=== PATIENT | female | born 1985 | race American Indian/Alaskan Native ===

== ENCOUNTER 2017-08-20 07:33 | Emergency (ER) | payer OTHER ==
--- NOTE | 2017-08-20 07:36 | PDOC ---
History of Present Illness <David Peterson - Last Filed: 08/20/17 10:32> - General History Source: Patient, Significant Other Exam Limitations: Language Barrier (Neocleus #[id number] used for Laney interpretation) - History of Present Illness Travel History: Yes Initial Comments: 08/20/17 08:12 The patient is a 32 year old female, 12 weeks by date, , with no significant past medical history, presents to the emergency department with intermittent right flank and right upper abdominal pain starting several hours ago. She reports the pain as sharp and colicy in nature. She denies radiation of pain. She denies exacerbating or alleviating factors of pain. She denies chest pain, shortness of breath, headache and dizziness. She denies fever, chills, nausea, vomit, diarrhea and constipation. She denies dysuria, frequency, urgency and hematuria. Allergies: none Past surgical history: none Social history: denies ETOH and tobacco PCP: Dr. Lizeth Amaro loftsman: Dr. Andrews <Kimmie Krause - Last Filed: 08/20/17 10:41> - General Chief Complaint: Pain, Acute Stated Complaint: ABD PAIN Time Seen by Provider: 08/20/17 07:36 Past History <David Peterson - Last Filed: 08/20/17 10:32> <Kimmie Krause - Last Filed: 08/20/17 10:41> - Past Medical History Allergies/Adverse Reactions: Allergies Allergy/AdvReac Type Severity Reaction Status Date / Time No Known Allergies Allergy Verified 08/20/17 07:36 Home Medications: Ambulatory Orders NK [No Known Home Medication] 08/20/17 Review of Systems - Review of Systems Able to Perform ROS?: Yes Comments:: 08/20/17 08:14 CONSTITUTIONAL: No fever, no chills, no fatigue EYES: No visual changes ENT: No ear pain, no sore throat CARDIOVASCULAR: No chest pain, no palpitations RESPIRATORY: No cough, no SOB GI: (+) right upper quadrant pain. no nausea, no vomiting, no constipation, no diarrhea GENITOURINARY: (+) right flank pain. No dysuria, no frequency, no hematuria MUSKULOSKELETAL: No backpain, no joint pain, no myalgias SKIN: No rash NEURO: No headache <Jimi,Kimmie - Last Filed: 08/20/17 10:41> *Physical Exam - Vital Signs Last Vital Signs Temp Pulse Resp BP Pulse Ox 98.3 F 88 20 111/77 98 08/20/17 07:35 08/20/17 07:35 08/20/17 07:35 08/20/17 07:35 08/20/17 07:47 - Physical Exam Comments: 08/20/17 08:14 CONSTITUTIONAL: Well-appearing; well-nourished; in no apparent distress HEAD: Normocephalic; atraumatic EYES: PERRL; EOM intact.no scleral icterus. ENMT: (+) Dry mucosa. External appears normal; normal oropharynx NECK: Supple; non-tender; no cervical lymphadenopathy CARD: Normal S1, S2; no murmurs, rubs, or gallops RESP: Normal chest excursion with respiration; breath sounds clear and equal bilaterally; no wheezes, rhonchi, or rales ABD: (+) right CVA tenderness. RUQ tenderness to palpation. Soft, non- distended. non-tender; no palpable organomegaly, no palpable hernias EXT: Normal ROM in all four extremities; non-tender to palpation; distal pulses intact SKIN: Warm, dry, no rash NEURO: No focal neurological deficiencies. <YasminVilma wylieanda - Last Filed: 08/20/17 10:41> ED Treatment Course - LABORATORY CBC & Chemistry Diagram: 08/20/17 08:00 08/20/17 08:00 <David Peterson - Last Filed: 08/20/17 10:32> - LABORATORY CBC & Chemistry Diagram: 08/20/17 08:00 08/20/17 08:00 - RADIOLOGY Radiograph Interpretation: EXAM#: TYPE/EXAM: RESULT: [id number] US/ABDOMEN US -LIMITED Complete abdominal ultrasound. HISTORY: 32-year-old female with right upper quadrant abdominal pain TECHNIQUE: Real-time complete abdominal ultrasound with color-flow Doppler was performed by the electroencephalograph technologist. No comparison study is available. FINDINGS: The liver is normal in size measuring 16.6 cm in length. The hepatic parenchyma is homogeneous in echotexture with no evidence of focal lesion. No gallstones or gallbladder sludge seen. No gallbladder wall thickening or pericholecystic fluid is seen. No sonographic Carson's sign was elicited. The CBD is normal in caliber measuring 5 mm in diameter. The visualized portion of the pancreas appear grossly unremarkable. The spleen is normal in size measuring 10.2 x 3.7 x 3.7 cm. No focal splenic lesion seen. The right kidney measures 11.7 x 4.3 x 6.1 cm. The left kidney measures 12.5 x 5.4 x 6.3 cm. The right and left renal parenchymal echogenicity is within normal limits. There is no right or left renal masses, stones, cysts or hydronephrosis. The visualized portions of the abdominal aorta and IVC appear unremarkable. The main portal vein is patent. IMPRESSION: Unremarkable complete abdominal ultrasound Reported By: Artur Newton MD 08/20/17 1003 ___ EXAM#: TYPE/EXAM: RESULT: [id number] US/ <14WKS US Abdominal pain. Evaluate Pelvis/obstetrical ultrasound, transvesical The uterus is gravid measuring 14.7 x 6.6 cm. An intrauterine fetus is present with average sonographic gestational age of 14 weeks 3 days. heart activity was documented with a heart rate of 155 bpm. Fluid is present in the stomach. There is no gross evidence of hydrocephalus. Amount of amniotic fluid is within normal limits. The placenta is posterior and appears unremarkable. Limited visualization of the uterine cervix measuring 3.3 cm in sagittal length without gross dilatation or funneling. IMPRESSION: Single live intrauterine with estimated average sonographic gestational age of 14 weeks 3 days. The heart activity was documented. Limited visualization of the uterine cervix that appears to be within normal limits in size without dilatation or funneling. Correlate clinically for follow-up. Reported By: Iris Yang MD 08/20/17 1004 - Medications Given in the ED: ED Medications Discontinued Medications Generic Name Dose Route Start Last Admin Trade Name Freq PRN Reason Stop Dose Admin Acetaminophen 1,000 mg 08/20/17 07:47 08/20/17 08:08 Ofirmev Injection - IVPB 08/20/17 07:48 1,000 mg ONCE ONE Administration <Kimmie Krause - Last Filed: 08/20/17 10:41> Medical Decision Making - Medical Decision Making 08/20/17 08:39 Patient is a 32-year-old female, 2 para 1, at 12 weeks gestation by LMP presents to the ER with atraumatic left upper quadrant and left flank pain. Differential diagnoses includes nephrolithiasis versus cholelithiasis versus cholecystitis versus pyelonephritis versus acute appendicitis. Will hydrate. We' ll administer acetaminophen for pain. We'll obtain CBC/CMP/lipase/UA. Will obtain right upper quadrant and -related ultrasound. Will reassess. 08/20/17 10:32 pt is assymtomatic, patricio po. abd exam shows no abd ttp, no g/r. no cva ttp. cbc/cmp/ua-wnl. Abd and related US are wnl, with fh+. findings and plan of care transmitted topt using [employer] general intern. pt expressed understanding. will d/c with industrial relations counselor f/u. <David Peterson - Last Filed: 08/20/17 10:32> *DC/Admit/Observation/Transfer - Attestations Physician Attestion: 08/20/17 08:39 The documentation was prepared by the scribe under my direct supervision. I have reviewed the documentation which correctly represents the findings, medical decision-making and critical action taken by me. <David Peterson - Last Filed: 08/20/17 10:32> - Attestations Scribe Attestion: 08/20/17 08:15 Documentation prepared by Kimmie Krause, acting as medical biller coder for David Peterson MD <Kimmie Krause - Last Filed: 08/20/17 10:41> Diagnosis at time of Disposition: Abdominal pain affecting - Discharge Dispostion Disposition: HOME Condition at time of disposition: Stable - Referrals Referrals: Nicole Mack MD [Staff Physician] - - Patient Instructions Printed Discharge Instructions: DI for Abdominal Pain-Adult Additional Instructions: Take Zantac-150 mg twice daily for the next 5 days. Return immediately for worsening symptoms.
[2017-08-20 07:39] VITALS: BMI 29.6
[2017-08-20] MEDS ORDERED: SODIUM CHLORIDE 1,000 ML IV STA (07:47)
[2017-08-20] MEDS ORDERED: ACETAMINOPHEN 1000 MG/100 ML VIAL (NON FORMULARY) IVPB ONE (07:47)
[2017-08-20] MEDS ORDERED: ACETAMINOPHEN INJECTION 100 ML IVPB ONE (08:02)
[2017-08-20 08:14] LABS: BASO % 0.5 % (0-2.0); EOS % 1.4 % (0-4.5); HEMATOCRIT 32.8 % (32.4-45.2); HEMOGLOBIN 11.1 GM/dL (10.7-15.3); LYMPH % 25.7 % (8-40); MCH 28.2 pg (25.7-33.7); MCHC 33.7 g/dl (32.0-36.0); MEAN CELL VOLUME 83.6 fl (80-96); MEAN PLT VOLUME 9.1 fl (7.5-11.1); MONO % 7.6 % (3.8-10.2); NEUT % 64.8 % (42.8-82.8); PLATELET COUNT 180 K/MM3 (134-434); RBC 3.92 M/mm3 (3.60-5.2); WHITE BLOOD COUNT 8.5 K/mm3 (4.0-10.0)
[2017-08-20 08:15] LABS: URINE APPEARANCE CLEAR; URINE BILIRUBIN NEGATIVE (<2.0 mg/dL); URINE BLOOD NEGATIVE (NEGATIVE); URINE COLOR STRAW; URINE GLUCOSE (UA) NEGATIVE (NEGATIVE); URINE KETONE NEGATIVE (NEGATIVE); URINE NITRITE NEGATIVE (NEGATIVE); URINE PROTEIN NEGATIVE (NEGATIVE); URINE UROBILINOGEN NEGATIVE mg/dL (0.2-1.0)
[2017-08-20 08:25] LABS: URINE LEUK ESTERASE 1+ (NEGATIVE)
[2017-08-20 08:27] LABS: EPI CELLS RARE /HPF (FEW); URINE BACTERIA FEW /hpf (NONE SEEN); URINE MUCUS RARE
[2017-08-20 08:40] LABS: ALBUMIN 3.3 g/dl (3.4-5.0); ALK PHOS 63 U/L (45-117); ANION GAP 9 (8-16); BILIRUBIN,TOTAL 0.2 mg/dL (0.2-1.0); BLOOD UREA NITROGEN 4 mg/dL (7-18); CALCIUM 8.6 mg/dL (8.5-10.1); CHLORIDE 108 mmol/L (98-107); CO2 22 mmol/L (21-32); CREATININE 0.5 mg/dL (0.55-1.02); GLUCOSE,RANDOM 76 mg/dL (74-106); LIPASE 116 U/L (73-393); POTASSIUM 3.7 mmol/L (3.5-5.1); SGOT/AST 11 U/L (15-37); SGPT/ALT 10 U/L (12-78); SODIUM 139 mmol/L (136-145); TOT PROT 7.2 g/dl (6.4-8.2)
[2017-08-20 10:51] VITALS: BP 115/71; PULSE 81; TEMP 98.1
== END 2017-08-20 10:52 | disposition home or self-care (01) ==
LOC: JER 07:33
PROC: 3E033NZ Introduction of Analgesics, Hypnotics, Sedatives into Peripheral Vein, Percutaneous Approach (ICD-10-PCS; principal; 2017-08-20)
PROC: 3E0337Z Introduction of Electrolytic and Water Balance Substance into Peripheral Vein, Percutaneous Approach (ICD-10-PCS; 2017-08-20)
DX: O26.891 Other specified pregnancy related conditions, first trimester (principal); Z3A.12 12 weeks gestation of pregnancy; R10.31 Right lower quadrant pain
CPT/HCPCS: 36415; 76705-TC; 76801-TC; 80053; 81003; 81015; 83690; 85025; 87086; 96361; 96374; 99284-25; J0131; J7030

== ENCOUNTER 2018-02-23 10:00 | Inpatient (IN) | payer OTHER ==
[2018-02-23] MEDS ORDERED: TUBERCULIN PPD 5 TU/0.1ML SYRINGE (IN PATIENT USE ONLY) ID ONE (12:00)
[2018-02-23 12:34] LABS: BASO % 0.2 % (0-2.0); EOS % 0.9 % (0-4.5); HEMATOCRIT 33.1 % (32.4-45.2); HEMOGLOBIN 10.5 GM/dL (10.7-15.3); LYMPH % 20.2 % (8-40); MCH 23.1 pg (25.7-33.7); MCHC 31.8 g/dl (32.0-36.0); MEAN CELL VOLUME 72.5 fl (80-96); MEAN PLT VOLUME 8.6 fl (7.5-11.1); MONO % 8.6 % (3.8-10.2); NEUT % 70.1 % (42.8-82.8); PLATELET COUNT 182 K/MM3 (134-434); RBC 4.57 M/mm3 (3.60-5.2); RDW 21.9 % (11.6-15.6); WHITE BLOOD COUNT 11.2 K/mm3 (4.0-10.0)
[2018-02-23 12:48] LABS: INR 1.01 (0.83-1.09); PROTHROMBIN TIME (PATIENT) 11.9 SEC (9.7-13.0)
[2018-02-23 12:50] LABS: ACTIVATED PTT 27.3 SECONDS (25.2-36.5)
[2018-02-23 12:58] LABS: ANION GAP 8 MMOL/L (8-16); BLOOD UREA NITROGEN 7 mg/dL (7-18); CALCIUM 8.7 mg/dL (8.5-10.1); CHLORIDE 106 mmol/L (98-107); CO2 24 mmol/L (21-32); CREATININE 0.3 mg/dL (0.55-1.3); GLUCOSE,RANDOM 83 mg/dL (74-106); POTASSIUM 4.1 mmol/L (3.5-5.1); SODIUM 139 mmol/L (136-145)
[2018-02-23 13:48] LABS: ANISOCYTOSIS 2+; MACROCYTOSIS 0; PLATELET ESTIMATE NORMAL
[2018-02-23 14:28] VITALS: BMI 33.4
[2018-02-23] MEDS ORDERED: DINOPROSTONE 10 MG VAGINAL SUPPOSITORY VG ONE (15:10)
[2018-02-23] MEDS ORDERED: DEXTROSE 5%-LACTATED RINGERS 1,000 ML IV SCH (15:15)
--- NOTE | 2018-02-23 15:18 | HP ---
Past Medical History - Admission Chief Complaint: Abdominal pain History of Present Illness: 32 yo @ 40 weeks gestation, EDC 02/23/18, presents to L&D c/o abdominal pain. Decision made for induction of labor with Cervidil. History Source: Patient Limitations to Obtaining History: No Limitations - Past Medical History ...: 2 ...Para: 1 ...Term: 1 ...: 0 ...Spon : 0 ...Induced : 0 ...Multiple Gestation: 0 ...LMP: 05/13/17 ... Weeks Gestation by Dates: 40.6 ...EDC by Dates: 02/17/18 ...EDC by Sono: 02/23/18 - Past Surgical History Past Surgical History: Yes: None Hx Myomectomy: No Hx Transabdominal Cerclage: No - Smoking History Smoking history: Never smoked Have you smoked in the past 12 months: No - Alcohol/Substance Use Hx Alcohol Use: No History of Substance Use: reports: None - Social History Usual Living Arrangement: Yes: With Spouse History of Recent Travel: No Home Medications - Allergies Allergies/Adverse Reactions: Allergies Allergy/AdvReac Type Severity Reaction Status Date / Time No Known Allergies Allergy Verified 01/08/18 15:50 - Home Medications Home Medications: Ambulatory Orders Ferrous Sulfate [Feosol] 325 mg PO DAILY 01/08/18 Levothyroxine [Synthroid -] 112 mcg PO DAILY 01/08/18 Vits96/Iron Fum/Folic [ Tablet] 1 each PO DAILY 01/08/18 Family Disease History - Family Disease History Family History: Unremarkable Review of Systems - Review of Systems Constitutional: reports: No Symptoms Eyes: reports: No Symptoms HENT: reports: No Symptoms Neck: reports: No Symptoms Cardiovascular: reports: No Symptoms Respiratory: reports: No Symptoms Gastrointestinal: reports: No Symptoms Genitourinary: reports: Pain Breasts: reports: No Symptoms Reported Musculoskeletal: reports: No Symptoms Integumentary: reports: No Symptoms Neurological: reports: No Symptoms Endocrine: reports: No Symptoms Hematology/Lymphatic: reports: No Symptoms Psychiatric: reports: No Symptoms Pain Intensity: 4 Physical Exam - Maternity Vital Signs: Vital Signs Temperature 98.4 F 02/23/18 14:00 Pulse Rate 92 H 02/23/18 15:00 Respiratory Rate 20 02/23/18 15:00 Blood Pressure 99/56 L 02/23/18 15:00 O2 Sat by Pulse Oximetry (%) Constitutional: Yes: Well Nourished Eyes: Yes: Conjunctiva Clear HENT: Yes: Atraumatic Neck: Yes: Supple Cardiovascular: Yes: Regular Rate and Rhythm Lungs: Clear to auscultation Breast(s): Yes: WNL - Abdominal Exam/OB Number of Fetuses: Single Presentation: Vertex Contractions: No Intensity: Mild - Vaginal Exam/OB Vaginal Bleediing: No Station: -3 - Physical Exam Musculoskeletal: Yes: WNL Extremities: Yes: WNL ...Motor Strength: WNL Psychiatric: Yes: Alert, Oriented - Labs Lab Results: CBC, BMP 02/23/18 12:25 02/23/18 12:25 Problem List - Problems (1) 40 weeks gestation of Code(s): Z3A.40 - 40 WEEKS GESTATION OF Assessment/Plan 40 weeks gestation Cervidil induction Re-evaluate in 12 hours or before if indicated Analgesia as needed
[2018-02-23] MEDS ORDERED: AMPICILLIN - 2 GM in SODIUM CHLORIDE 100 ML IVPB ONE (23:30)
[2018-02-23] MEDS ORDERED: PROMETHAZINE HCL 25 MG/1 ML VIAL IVPB ONE (23:30)
[2018-02-23] MEDS ORDERED: BUTORPHANOL TARTRATE 1 MG/ML VIAL IVPB ONE (23:30)
[2018-02-23] MEDS ORDERED: AMPICILLIN SODIUM 2 GM VIAL ONE (23:46)
[2018-02-23] MEDS ORDERED: BUTORPHANOL TARTRATE 1 MG/ML VIAL ONE ×2 (23:58)
[2018-02-23] MEDS ORDERED: PROMETHAZINE HCL 25 MG/1 ML VIAL ONE (23:59)
[2018-02-24] MEDS: ELECTROLYTE-148 SOLN 1,000 ML IV SCH ×2 (03:35→04:57)
[2018-02-24] MEDS ORDERED: FENTANYL/BUPIVACAINE/NS/PF - PCEA - 50 ML DISP.SYRIN EP ONE ×3 (03:38→09:58)
[2018-02-24] MEDS ORDERED: BUPIVACAINE HCL/PF 0.25% (2.5MG/ML) 10 ML VIAL ONE (03:41)
[2018-02-24] MEDS: AMPICILLIN - 1 GM in SODIUM CHLORIDE 100 ML IVPB SCH ×2 (04:00→08:35)
[2018-02-24] MEDS ORDERED: FENTANYL/BUPIVACAINE/NS/PF - PCEA - 50 ML DISP.SYRIN EP SCH (04:00)
[2018-02-24] MEDS ORDERED: NALOXONE HCL 0.4 MG/ML VIAL IVPUSH PRN (04:02)
[2018-02-24] MEDS ORDERED: AMPICILLIN SODIUM 1 GM VIAL ONE ×2 (04:11→08:35)
[2018-02-24] MEDS ORDERED: OXYTOCIN 30 UNITS in 0.9% NS 30 UNIT/500 ML INFUS.BAG IVPB ONE (09:19)
[2018-02-24] MEDS ORDERED: OXYTOCIN 30 UNITS in 0.9% NS 30 UNIT/500 ML INFUS.BAG IVPB SCH (09:25)
[2018-02-24] MEDS ORDERED: OXYTOCIN 20 UNITS in 0.9% NS 20 UNIT/1,000 ML INFUS.BAG IV ONE ×2 (10:24→11:34)
[2018-02-24] MEDS: OXYTOCIN 20 UNITS in 0.9% NS 20 UNIT/1,000 ML INFUS.BAG IV SCH ×2 (10:35→12:25)
[2018-02-24] MEDS ORDERED: METHYLERGONOVINE MALEATE 0.2 MG/1 ML AMP IM PRN (10:58)
[2018-02-24] MEDS ORDERED: BENZOCAINE 20% 57 GM BOTTLE TP PRN (10:58)
[2018-02-24] MEDS ORDERED: BENZOCAINE 28 GM HEMORRHOIDAL OINTMENT TP PRN (10:58)
[2018-02-24] MEDS ORDERED: BISACODYL 10 MG SUPP.RECT RC PRN (10:58)
[2018-02-24] MEDS ORDERED: WITCH HAZEL 50% (TUCKS) 40 PAD/JAR PAD TP PRN (10:58)
--- NOTE | 2018-02-24 11:03 | PN ---
Delivery - Delivery Vaginal Delivery: Spontaneous Episiotomy/Laceration: None EBL (cc): 300 Delivery, Single - Feeding Plan Initial Plan: Elected not to breastfeed exclusively throughout hospitalization Remarks - Remarks Remarks: Normal spontaneous vaginal delivery of a live infant. Nose / Oropharynx suctioned @ perineum. Cord around the body clamped and cut. Placenta expelled spontaneously intact. Baby handed to nurse. Mother in stable condition.
[2018-02-24 11:12] LABS: ARTERIAL BLD GAS O2 SATURATION 37.5 % (90-98.9); ARTERIAL BLOOD GAS PCO2 57.1 mmHg (35-45); ARTERIAL BLOOD GAS PO2 24.2 mmHg (80-100); ARTERIAL BLOOD GAS pH 7.17 (7.35-7.45)
[2018-02-24 11:21] LABS: VENOUS PC02 50.6 mmHg (38-52); VENOUS PH 7.23 (7.32-7.42); VENOUS PO2 26.7 mmHg (28-48)
[2018-02-24] MEDS: IBUPROFEN 600 MG TABLET (FP) PO PRN ×3 (12:48→21:22)
[2018-02-24] MEDS: ACETAMINOPHEN 325 MG TABLET (FP) PO PRN ×3 (12:49→21:21)
[2018-02-24] MEDS: FERROUS SO4 325 MG TABLET (FP) PO SCH (21:21)
[2018-02-25] MEDS: IBUPROFEN 600 MG TABLET (FP) PO PRN ×3 (04:19→20:18)
[2018-02-25] MEDS: ACETAMINOPHEN 325 MG TABLET (FP) PO PRN ×3 (04:20→20:18)
[2018-02-25 07:44] LABS: BASO % 0.2 % (0-2.0); EOS % 1.4 % (0-4.5); HEMOGLOBIN 8.8 GM/dL (10.7-15.3); LYMPH % 25.5 % (8-40); MCH 23.1 pg (25.7-33.7); MCHC 31.4 g/dl (32.0-36.0); MEAN CELL VOLUME 73.5 fl (80-96); MEAN PLT VOLUME 9.2 fl (7.5-11.1); MONO % 9.2 % (3.8-10.2); NEUT % 63.7 % (42.8-82.8); PLATELET COUNT 143 K/MM3 (134-434); RDW 21.8 % (11.6-15.6); WHITE BLOOD COUNT 11.3 K/mm3 (4.0-10.0)
[2018-02-25] MEDS: FERROUS SO4 325 MG TABLET (FP) PO SCH ×3 (10:00→22:43)
[2018-02-25] MEDS: PRENATAL VITAMINS W/ FOLIC ACID TABLET (FP) PO SCH (10:00)
[2018-02-25] MEDS ORDERED: DIPHTH,PERTUSS(ACELL),TET 0.5 ML DISP.SYRIN IM ONE (10:00)
[2018-02-25] MEDS ORDERED: SENNOSIDES/DOCUSATE COMBO (SENNA PLUS) TABLET (UD) PO PRN (22:00)
[2018-02-26] MEDS: ACETAMINOPHEN 325 MG TABLET (FP) PO PRN (05:01)
[2018-02-26] MEDS: IBUPROFEN 600 MG TABLET (FP) PO PRN (05:09)
[2018-02-26 08:20] VITALS: BP 105/67; PULSE 81; TEMP 98.3
[2018-02-26] MEDS: PRENATAL VITAMINS W/ FOLIC ACID TABLET (FP) PO SCH (09:22)
[2018-02-26] MEDS: FERROUS SO4 325 MG TABLET (FP) PO SCH (09:22)
--- NOTE | 2018-02-26 09:29 | PN ---
Post Note - Post Date of Delivery: 02/24/18 Vital Signs: Vital Signs - 24 hr 02/25/18 02/25/18 02/26/18 09:36 21:00 08:18 Temperature 97.8 F 97.9 F 98.3 F Pulse Rate 73 84 81 Respiratory 18 18 18 Rate Blood Pressure 103/56 L 110/72 105/67 - Subjective Subjective: No Complaints - Objective Afebrile: No Breast: Not engorged Abdomen: Soft, Non-tender Uterus: Fundus firm Vagina: Scant lochia Extremities: Non-tender - Assessment/Plan (1) Normal vaginal delivery Assessment: S/P Normal Plan: Routine Care (MD home)
== END 2018-02-26 12:20 | disposition home or self-care (01) | DRG 560 ==
LOC: JDEL 10:00 → JLDR 10:45 → J3W 02-24 12:31
PROVIDERS: ADMIT Obstetrics & Gynecology; ATTEND Obstetrics & Gynecology
PROC: 10E0XZZ Delivery of Products of Conception, External Approach (ICD-10-PCS; principal; 2018-02-24)
PROC: 3E0P7VZ Introduction of Hormone into Female Reproductive, Via Natural or Artificial Opening (ICD-10-PCS; 2018-02-24)
DX: O48.0 Post-term pregnancy (principal); Z3A.40 40 weeks gestation of pregnancy; Z37.0 Single live birth
CPT/HCPCS: 36415; 36600; 59025; 59409; 80048; 82803; 85025; 85610; 85730; 86593; 86850; 86900; 86901; 90686; 90715; G0008

== ENCOUNTER 2019-03-17 04:37 | Day surgery (SDC) | payer OTHER ==
[2019-03-16 12:59] VITALS: BMI 30.3
[2019-03-17] MEDS ORDERED: KETOROLAC TROMETHAMINE 30 MG/1 ML VIAL ONE (07:09)
[2019-03-17] MEDS ORDERED: PROPOFOL 20 ML ONE (07:09)
[2019-03-17] MEDS ORDERED: DEXAMETHASONE SOD PHOSPHATE 4 MG/1 ML VIAL ONE (07:09)
[2019-03-17] MEDS ORDERED: SUCCINYLCHOLINE CHLORIDE 200 MG/10 ML SYRINGE ONE (07:10)
[2019-03-17] MEDS ORDERED: MIDAZOLAM HCL 2 MG/2 ML SINGLE DOSE VIAL ONE (07:10)
[2019-03-17] MEDS ORDERED: ePHEDrine SULFATE 50 MG/1 ML AMPULE ONE (07:11)
[2019-03-17] MEDS ORDERED: oxyCODONE HCL 5 MG TABLET PO PRN (07:30)
[2019-03-17] MEDS ORDERED: ONDANSETRON 4 MG/2 ML VIAL IVPUSH PRN (07:30)
[2019-03-17] MEDS ORDERED: LACTATED RINGERS SOLUTION 1,000 ML IV SCH (07:30)
--- NOTE | 2019-03-17 07:47 | HP ---
Admitting History and Physical - Admission Chief Complaint: Chemical History of Present Illness: 33 yo with missed is pre op for suction D&C. History Source: Patient Limitations to Obtaining History: No Limitations - Past Medical History ...LMP: 01/03/19 ...: Yes (missed ) ...: 4 ...Para: 2 - Past Surgical History Past Surgical History: Yes: None - Smoking History Smoking history: Never smoked Have you smoked in the past 12 months: No - Alcohol/Substance Use Hx Alcohol Use: No History of Substance Use: reports: None - Social History Usual Living Arrangement: Yes: With Spouse History of Recent Travel: No Home Medications - Allergies Allergies/Adverse Reactions: Allergies Allergy/AdvReac Type Severity Reaction Status Date / Time No Known Allergies Allergy Verified 03/16/19 13:04 - Home Medications Home Medications: Ambulatory Orders Levothyroxine [Synthroid -] 100 mcg PO DAILY 03/16/19 Review of Systems - Review of Systems Constitutional: reports: No Symptoms Eyes: reports: No Symptoms HENT: reports: No Symptoms Neck: reports: No Symptoms Cardiovascular: reports: No Symptoms Respiratory: reports: No Symptoms Gastrointestinal: reports: No Symptoms Genitourinary: denies: Vaginal Bleeding Breasts: reports: No Symptoms Reported Musculoskeletal: reports: No Symptoms Integumentary: reports: No Symptoms Neurological: reports: No Symptoms Endocrine: reports: No Symptoms Hematology/Lymphatic: reports: No Symptoms Psychiatric: reports: No Symptoms Pain Intensity: 0 Physical Examination Vital Signs: Vital Signs Temperature 97.9 F 03/17/19 06:55 Pulse Rate 65 03/17/19 06:55 Respiratory Rate 20 03/17/19 06:55 Blood Pressure 100/69 03/17/19 06:55 O2 Sat by Pulse Oximetry (%) 100 03/17/19 06:55 Constitutional: Yes: Well Nourished Eyes: Yes: Conjunctiva Clear HENT: Yes: Atraumatic Neck: Yes: Supple Cardiovascular: Yes: Regular Rate and Rhythm Respiratory: Yes: Regular Gastrointestinal: Yes: Normal Bowel Sounds ...Rectal Exam: Yes: WNL Renal/: Yes: WNL Breast(s): Yes: WNL Musculoskeletal: Yes: WNL Extremities: Yes: WNL Neurological: Yes: Alert, Oriented ...Motor Strength: WNL Psychiatric: Yes: Alert, Oriented Problem List - Problems (1) Missed Problems reviewed: Yes Code(s): O02.1 - MISSED Assessment/Plan Missed Pre op for suction D&C Consent signed Anesthesia to see patient
--- NOTE | 2019-03-17 08:58 | OP ---
Operative Note - Note: Operative Date: 03/17/19 Pre-Operative Diagnosis: Missed Operation: Suction D&C Findings: Blood / Product of conception Post-Operative Diagnosis: Same as Pre-op Surgeon: Nicole Mack Anesthesia: General Specimens Removed: Product of conception Estimated Blood Loss (mls): 5
[2019-03-17 11:12] VITALS: PULSE 78
[2019-03-17 14:27] VITALS: BP 92/58; TEMP 97.8
--- NOTE | 2019-03-18 07:31 | OP ---
DATE OF OPERATION: 03/17/2019 PREOPERATIVE DIAGNOSIS: Missed . POSTOPERATIVE DIAGNOSIS: Missed . PROCEDURE PERFORMED: Suction dilatation and curettage. SURGEON: Nicole Mack M.D. ANESTHESIA: General. COMPLICATIONS: None. ESTIMATED BLOOD LOSS: 5 mL. DESCRIPTION OF PROCEDURE: The patient was taken to the operating room, where general anesthesia was administered. The patient was then placed in the lithotomy position. She was then prepped and draped in the proper sterile fashion. A weighted speculum was placed in the vagina. The anterior lip of the cervix was grasped with a single-tooth tenaculum. The cervical os was then sequentially dilated with Newberry dilators. A 10-mm suction curette was then gently introduced into the uterine cavity. The suction curette was then rotated to clear the uterus of all products of conception. Sharp curettage was then performed. The suction curette was reintroduced to clear the uterus of all remaining products of conception. Then the instruments were removed. The patient was taken out of the lithotomy position. She was taken to the PACU in stable condition. PATHOLOGY: Products of conception. Meir GUILLEN/[id number]
--- NOTE | 2019-03-22 16:14 | PATH ---
Surgical Pathology Report Patient Name: GAUDENCIO PUGA Med. Rec. #: [id number] /Age/Gender: 1985 (Age: 33) / F Account: [id number] Location: [facility] SURGICAL Taken: 03/17/2019 Received: 03/17/2019 Reported: 03/22/2019 Physicians: Nicole Mack M.D. Specimen(s) Received A: PRODUCTS OF CONCEPTION (#1) B: PRODUCTS OF CONCEPTION (#2) Clinical History Missed Final Diagnosis A. PRODUCTS OF CONCEPTION (#1), SUCTION D&C: CHORIONIC VILLI, DECIDUA, AND HYPERSECRETORY ENDOMETRIUM, CONSISTENT WITH PRODUCTS OF CONCEPTION. B. PRODUCTS OF CONCEPTION (#2), SUCTION D&C: HYPERSECRETORY ENDOMETRIUM. Electronically Signed Ekaterina Reynolds M.D. Gross Description A. Received in formalin labeled "#1 products of conception," is a 5.5 x 4.5 x 1.0 cm aggregate of rhodes soft tissue fragments. No definite villous tissue or somatic tissue is identified. Voicer sections are submitted in 3 cassettes. B. Received in formalin labeled "#2 products of conception," is a 1.0 x 0.6 x 0.1 cm aggregate of rhodes soft tissue fragments. No definitive villous tissue or somatic tissue is identified. The formalin is filtered and the specimen is entirely submitted in one cassette. 03/18/2019 [facility]03/18/2019
== END 2019-03-17 12:30 | disposition home or self-care (01) ==
LOC: JASU-SURG 04:37
PROVIDERS: ATTEND Obstetrics & Gynecology
PROC: 10D17ZZ Extraction of Products of Conception, Retained, Via Natural or Artificial Opening (ICD-10-PCS; principal; 2019-03-17 08:06)
DX: O02.1 Missed abortion (principal)
CPT/HCPCS: 88305-TC; 94760

== ENCOUNTER 2021-01-05 23:03 | Emergency (ER) | payer OTHER ==
[2021-01-05 23:08] VITALS: BP 117/78; PULSE 77; TEMP 97; BMI 33.6
[2021-01-06] MEDS ORDERED: ACETAMINOPHEN 1000 MG/100 ML VIAL (NON FORMULARY) IVPB ONE (00:25)
[2021-01-06] MEDS ORDERED: SODIUM CHLORIDE 0.9% 500 ML INFUS.BAG IV ONE (00:28)
[2021-01-06 01:10] LABS: BASO % 0.2 % (0-2.0); EOS % 0.9 % (0-4.5); HEMOGLOBIN 11.3 GM/dL (10.7-15.3); LYMPH % 22.2 % (8-40); MCHC 34.2 g/dl (32.0-36.0); MEAN CELL VOLUME 78.9 fl (80-96); MEAN PLT VOLUME 9.4 fl (7.5-11.1); NEUT % 68.7 % (42.8-82.8); PLATELET COUNT 188 10^3/uL (134-434); RBC 4.17 M/mm3 (3.60-5.2); RDW 15.6 % (11.6-15.6); WHITE BLOOD COUNT 9.9 K/mm3 (4.0-10.0)
[2021-01-06 01:21] LABS: ALBUMIN 3.7 g/dl (3.4-5.0); BLOOD UREA NITROGEN 7.4 mg/dL (7-18); INR 1.08 (0.83-1.09)
[2021-01-06 01:22] LABS: EPI CELLS 9 /uL (0-25.1); HYALINE CASTS 0 /uL (0-3.1); URINE APPEARANCE CLEAR; URINE BACTERIA 247 /uL (0-1359); URINE BILIRUBIN NEGATIVE (NEGATIVE); URINE COLOR YELLOW; URINE GLUCOSE (UA) NEGATIVE (NEGATIVE); URINE KETONE NEGATIVE (NEGATIVE); URINE LEUK ESTERASE 3+ (NEGATIVE); URINE NITRITE NEGATIVE (NEGATIVE); URINE PROTEIN NEGATIVE (NEGATIVE); URINE RBC 6 /uL (0-23.9); URINE UROBILINOGEN 0.2 mg/dL (0.2-1.0); URINE WBC 30 /uL (0-25.8)
[2021-01-06 01:24] LABS: ACTIVATED PTT 31.4 SECONDS (25.2-36.5); CREATININE 0.6 mg/dL (0.55-1.3)
[2021-01-06 01:25] LABS: BILIRUBIN,TOTAL 0.2 mg/dL (0.2-1)
[2021-01-06 01:26] LABS: TOT PROT 7.6 g/dl (6.4-8.2)
[2021-01-06] MEDS ORDERED: CEPHALEXIN 250 MG/5 ML ORAL SUSPENSION PO ONE (02:10)
[2021-01-06] MEDS ORDERED: CEPHALEXIN MONOHYDRATE 500 MG CAPSULE (UD) PO ONE (02:22)
== END 2021-01-06 02:53 | disposition home or self-care (01) ==
LOC: JER 23:03
PROC: 3E033NZ Introduction of Analgesics, Hypnotics, Sedatives into Peripheral Vein, Percutaneous Approach (ICD-10-PCS; principal; 2021-01-06)
DX: O20.8 Other hemorrhage in early pregnancy (principal); Z3A.01 Less than 8 weeks gestation of pregnancy
CPT/HCPCS: 36415; 76817-TC; 80053; 81003; 84702; 85025; 85610; 85730; 86850; 86900; 86901; 87086; 99284-25; J0131

== ENCOUNTER 2021-02-14 01:34 | Emergency (ER) | payer OTHER ==
[2021-02-14 01:50] VITALS: BMI 32.0
[2021-02-14] MEDS ORDERED: MECLIZINE HCL 25 MG TABLET (FP) PO ONE (02:14)
[2021-02-14] MEDS ORDERED: METOCLOPRAMIDE HCL 10 MG TABLET (FP) PO ONE ×2 (02:15→02:21)
[2021-02-14] MEDS ORDERED: ACETAMINOPHEN 325 MG TABLET (FP) PO ONE (02:15)
[2021-02-14] MEDS ORDERED: MECLIZINE HCL 25 MG TABLET (FP) ONE (02:21)
[2021-02-14] MEDS ORDERED: ACETAMINOPHEN 325 MG TABLET (FP) ONE (02:21)
[2021-02-14] MEDS ORDERED: SODIUM CHLORIDE 0.9% 500 ML INFUS.BAG IV ONE (02:34)
[2021-02-14 03:01] LABS: BASO % 0.7 % (0-2.0); EOS % 0.7 % (0-4.5); HEMOGLOBIN 11.1 GM/dL (10.7-15.3); LYMPH % 25.3 % (8-40); MCH 27.1 pg (25.7-33.7); MCHC 33.5 g/dl (32.0-36.0); MEAN CELL VOLUME 80.7 fl (80-96); MEAN PLT VOLUME 8.9 fl (7.5-11.1); MONO % 8.6 % (3.8-10.2); NEUT % 64.7 % (42.8-82.8); PLATELET COUNT 178 10^3/uL (134-434); RBC 4.08 M/mm3 (3.60-5.2); RDW 15.6 % (11.6-15.6); WHITE BLOOD COUNT 9.1 K/mm3 (4.0-10.0)
[2021-02-14 03:21] LABS: ALBUMIN 3.1 g/dl (3.4-5.0); BLOOD UREA NITROGEN 7.8 mg/dL (7-18)
[2021-02-14 03:24] LABS: CREATININE 0.5 mg/dL (0.55-1.3)
[2021-02-14 03:26] LABS: BILIRUBIN,TOTAL 0.2 mg/dL (0.2-1); TOT PROT 7.3 g/dl (6.4-8.2)
[2021-02-14 03:47] LABS: EPI CELLS 12 /uL (0-25.1); HYALINE CASTS 0 /uL (0-3.1); URINE APPEARANCE CLOUDY; URINE BACTERIA 1532 /uL (0-1359); URINE BILIRUBIN NEGATIVE (NEGATIVE); URINE COLOR YELLOW; URINE GLUCOSE (UA) NEGATIVE (NEGATIVE); URINE KETONE NEGATIVE (NEGATIVE); URINE LEUK ESTERASE 3+ (NEGATIVE); URINE NITRITE NEGATIVE (NEGATIVE); URINE PROTEIN NEGATIVE (NEGATIVE); URINE RBC 10 /uL (0-23.9); URINE UROBILINOGEN 0.2 mg/dL (0.2-1.0); URINE WBC 612 /uL (0-25.8)
[2021-02-14] MEDS ORDERED: CEPHALEXIN MONOHYDRATE 500 MG CAPSULE (UD) PO ONE (05:06)
[2021-02-14] MEDS ORDERED: CEPHALEXIN MONOHYDRATE 500 MG CAPSULE (UD) ONE (05:43)
[2021-02-14 05:52] VITALS: BP 103/70; PULSE 78; TEMP 98.2
== END 2021-02-14 05:52 | disposition home or self-care (01) ==
LOC: JER 01:34
DX: O23.91 Unspecified genitourinary tract infection in pregnancy, first trimester (principal); S16.1XXA Strain of muscle, fascia and tendon at neck level, initial encounter; R42 Dizziness and giddiness; Z3A.12 12 weeks gestation of pregnancy
CPT/HCPCS: 36415; 80053; 81003; 85025; 99283-25